=== PATIENT | male | born 1990 | race Caucasian/White ===

== ENCOUNTER 2016-08-08 12:07 | Emergency (ER) | payer BC ==
[~2016-08-08] VITALS: Ht 188 cm; Wt 95.5 kg
[2016-08-08 13:20] LABS: INFLUENZA B NEGATIVE
[2016-08-08 14:42] VITALS: BP 139/93; PULSE 82; TEMP 95.4
== END 2016-08-08 14:42 | disposition home or self-care (01) ==
LOC: COL.ER 12:07
PROVIDERS: Nurse Practitioner
DX: R07.81 Pleurodynia (principal)

== ENCOUNTER → 2017-04-21 | Outpatient (CLI) | payer BC | LOC: COL.LAB 15:35 | DX: R19.7 Diarrhea, unspecified (principal) ==